=== PATIENT | female | born 1960 | race American Indian/Alaskan Native ===

== ENCOUNTER 2017-12-24 12:36 | Day surgery (SDC) | payer OTHER ==
--- NOTE | 2017-12-24 15:09 | Anesthesia Consultation ---
Anesthesia Consult and Med Hx Date of service: 12/24/17 - Airway Anesthetic Teeth Evaluation: Edentulous ROM Head & Neck: Adequate Mental/Hyoid Distance: Adequate Mallampati Class: Class II Intubation Access Assessment: Good - Pulmonary Exam CTA: Yes - Cardiac Exam Cardiac Exam: RRR - Pre-Operative Health Status ASA Pre-Surgery Classification: ASA2 Proposed Anesthetic Plan: MAC - Gastrointestinal Hx Ulcer: Yes Hx Gastroesophageal Reflux Disease: Yes - Other Systems Hx Obesity: Yes
--- NOTE | 2017-12-24 15:09 | Anesthesia Day of Surgery ---
Anesthesia Day of Surgery - Day of Surgery Patient Examined: Yes Patient H&P Reviewed: Yes Patient is NPO: Yes
[2017-12-24] MEDS ORDERED: WATER FOR IRRIG STERILE IR ONE ×2 (15:58→15:59)
[2017-12-24] MEDS ORDERED: WATER FOR IRRIG STERILE ONE (15:58)
[2017-12-24] MEDS ORDERED: NACL 0.9% 1000 ML 1,000 ML IV SCH (16:00)
[2017-12-24] MEDS ORDERED: DIPRIVAN 10 MG/ML IV ONE ×2 (16:36)
--- NOTE | 2017-12-24 17:27 | Operative Report ---
Operative Report Operative Report: Date of procedure: 12/24/2017 Procedure: Colonoscopy. Attending physician: Patrick Clinton MD [facility] Coordinator: Patrick Clinton MD Indication: Patient is a 57-year-old female who presents for colonoscopy for colorectal cancer screening. A colonoscopy serves to evaluate patient so that treatment may be directed based on the findings. Consent: Informed consent was obtained after advising the patient and family regarding nature of this procedure, its indications, potential benefits as well as possible complications including but not limited to bleeding perforation and adverse reaction to medication, infection as well as other cardiopulmonary complications. An informed written and verbal consent was then obtained after due opportunity was provided for questions and answers. Monitoring: Patient was monitored continuously with pulse oximetry and electrocardiographic recordings as well as blood pressure recordings. Vital signs remained stable throughout this procedure with no untoward events. Preoperative assessment: Patient was assessed immediately prior to this procedure for capacity to tolerate monitored anesthesia care and moderate sedation as well as general anesthesia. Patient's ASA classification is 2, Mallampati class is 2, Hyomental distance is 3. Instrument: [employer] video colonoscope Medications: Propofol given intravenously in divided doses. For details please refer to anesthesia records. Description of procedure: Patient was placed in the left lateral decubitus position after achieving sedation, a digital rectal examination was performed following which the colonoscope was introduced into the anal verge and advanced to the cecum which was identified by the ileocecal valve, the appendiceal orifice, as well as by the cecal strap and direct transillumination. The colonoscope was subsequently withdrawn with careful inspection of all mucosal surfaces. Patient tolerated this procedure well and was subsequently taken to the recovery room. The following findings were noted. Findings: Patient had densely adherent thick liquid stool in sections of the colon which was irrigated carefully to optimize visualization of the colon. There was a transverse colon lipoma measuring approximately 2 cm by about 1 cm. The entirety of the colon otherwise to the cecum was normal. On the retroflex view at the anal verge, patient had prominent internal hemorrhoids. Impression: Transverse colon lipoma. Retained stool. Internal hemorrhoids. Plan: High-fiber diet. Prn stool softeners. Repeat colonoscopy in 10 years.
--- NOTE | 2017-12-24 17:31 | Discharge Summary ---
Short Stay Discharge Plan Activity: advance as tolerated Weight Bearing Status: Weight Bear as Tolerated Diet: regular Follow up with: GEORGINA YOUNG MD [Primary Care Provider] - 7 Days
[2017-12-24 18:19] VITALS: BP 153/66
--- NOTE | 2017-12-24 18:21 | Post Anesthesia Evaluation ---
- Post Anesthesia Evaluation Patient Participated: Yes Airway Patent: Yes Stable Respiratory Function: Yes Nausea/Vomiting: No Temp > 96.8F: Yes Pain Manageable: Yes Adequeate Hydration: Yes Anesthesia Complications: No Block Receding Appropriately: Not Applicable Patient on Ventilator: No
== END 2017-12-24 12:37 | disposition home or self-care (01) ==
LOC: GIO 12:36
PROVIDERS: ATTEND Internal Medicine Gastroenterology
DX: Z12.11 Encounter for screening for malignant neoplasm of colon (principal); D17.5 Benign lipomatous neoplasm of intra-abdominal organs; K64.8 Other hemorrhoids; K59.00 Constipation, unspecified; K21.9 Gastro-esophageal reflux disease without esophagitis; J45.909 Unspecified asthma, uncomplicated; E66.9 Obesity, unspecified; Z68.30 Body mass index [BMI] 30.0-30.9, adult
CPT/HCPCS: 45378; J2704